=== PATIENT | male | born 1965 | race Caucasian/White ===

== ENCOUNTER 2025-02-12 17:31 | Emergency (ER) | payer SELFPAY ==
[2025-02-12 17:57] VITALS: TEMP 98.8; BMI 21.1
[2025-02-12] MEDS ORDERED: PANTOPRAZOLE SODIUM 40 MG VIAL ONE ×2 (19:03)
[2025-02-12] MEDS: PANTOPRAZOLE SODIUM 40 MG in SODIUM CHLORIDE 100 ML IVPB ONE (19:25)
[2025-02-12 19:28] LABS: ABSOLUTE IMMATURE GRANULOCYTES 0.04 x10^3/uL (0.0-0.031); BASOPHILS # 0.04 x10^3/uL (0.01-0.08); EOSINOPHILS # 0.23 x10^3/uL (0.04-0.54); HEMATOCRIT 22.9 % (40.1-51.0); HEMOGLOBIN 7.7 g/dL (13.7-17.5); MCHC 33.6 g/dl (32.3-36.5); MEAN PLT VOLUME 9.5 fl (9.4-12.4); MONOCYTE # 0.94 x10^3/uL (0.30-0.82); PLATELET COUNT 108 x10^3/uL (163-337); RDW 14.9 % (12.2-16.1)
[2025-02-12 19:38] LABS: INR 1.06 (0.83-1.09); PROTHROMBIN TIME (PATIENT) 11.8 SEC (9.7-13.0)
[2025-02-12 19:40] LABS: ACTIVATED PTT 28.2 SECONDS (25.2-36.5)
[2025-02-12 19:49] LABS: ALBUMIN 3.7 g/dl (3.4-5.0); ALK PHOS 47 U/L (45-117); ANION GAP 9 mmol/L (4-13); BILIRUBIN,TOTAL 0.7 mg/dl (0.2-1); CALCIUM 8.8 mg/dl (8.5-10.1); CHLORIDE 103 mmol/L (98-107); CO2 25 mmol/L (21-32); CREATININE 1.4 mg/dl (0.6-1.3); GLUCOSE,RANDOM 108 mg/dl (74-106); LDH 110 U/L (84-246); SGOT/AST 21 U/L (15-37); SGPT/ALT 24 U/L (7-52); SODIUM 137 mmol/L (136-145); TOT PROT 5.7 g/dl (6.4-8.2)
[2025-02-12] MEDS: PANTOPRAZOLE SODIUM 80 MG in SODIUM CHLORIDE 100 ML IVPB SCH (20:00)
[2025-02-12 21:00] LABS: IRON SERUM 223 ug/dL (50-175)
[2025-02-12 21:01] LABS: TOTAL IRON BINDING CAPACITY 238 ug/dL (250-450)
[2025-02-12 22:11] VITALS: BP 92/69; PULSE 88; RESP 16
[2025-02-12] MEDS: SODIUM CHLORIDE 1,000 ML IV ONE (22:12)
[2025-02-13 01:49] LABS: HCV DIAGNOSTIC IN-HOUSE W/RFLX NON-REACTIVE (NONREACTIVE)
[2025-02-13 18:43] LABS: HIV INTERPRETATION NEGATIVE (NEGATIVE)
== END 2025-02-12 23:52 | disposition short-term general hospital (02) ==
LOC: FER 17:31
PROC: 3E033GC Introduction of Other Therapeutic Substance into Peripheral Vein, Percutaneous Approach (ICD-10-PCS; principal; 2025-02-12)
PROC: 3E033GC Introduction of Other Therapeutic Substance into Peripheral Vein, Percutaneous Approach (ICD-10-PCS; 2025-02-12)
PROC: 3E0337Z Introduction of Electrolytic and Water Balance Substance into Peripheral Vein, Percutaneous Approach (ICD-10-PCS; 2025-02-12)
DX: K92.2 Gastrointestinal hemorrhage, unspecified (principal); K92.0 Hematemesis; K92.1 Melena; R42 Dizziness and giddiness
CPT/HCPCS: 36415; 71250-TC; 71275-TC; 74176-TC; 74177-TC; 80053; 82272; 82550; 82728; 83540; 83550; 83615; 84484; 85025; 85610; 85730; 86803; 86850; 86900; 86901; 87389; 93005; 99285-25; Q9967